=== PATIENT | female | born 1970 | race Caucasian/White ===

== ENCOUNTER 2017-04-02 13:10 | Outpatient (CLI) | payer BC ==
--- NOTE | 2017-04-03 07:44 | RAD ---
LEFT WRIST THREE VIEWS: 04/02/17 No fracture was seen. The carpals appear normal and the carpal relation seem normal. There were no a rthritic changes. The joints were unremarkable. The metacarpals showed no acute change. IMPRESSION: No acute findings. POS: HOME
== END 2017-04-02 13:11 | disposition home or self-care (01) ==
LOC: BURRAD 13:10
PROVIDERS: ATTEND Family Medicine
DX: M25.532 Pain in left wrist (principal)

== ENCOUNTER 2018-03-19 13:23 | Emergency (ER) | payer BC ==
--- NOTE | 2018-03-19 13:38 | CT ---
CT HEAD NONCONTRAST DATE: 03/19/18 HISTORY: Altered mental status. TIA. FINDINGS: No comparison. There is no evidence of acute intracranial hemorrhage or infarct. The ventricles appear normal in siz e, shape, and position. There is no mass effect or shift of midline structures. Visualized paranasal sinuses remain well aerated. IMPRESSION: No acute intracranial abnormalities are demonstrated on noncontrast CT head. Findings called to Dr. Saab in the [place] ER at [id number] hours. CODE CR. POS: [facility]
[2018-03-19 13:41] LABS: #Basophils 0.1 thou/uL (0.0-0.2); #Eosinphils 0.2 thou/uL (0.0-0.7); #Lymphocytes 2.9 thou/uL (1.20-3.40); #Monocytes 0.6 thou/uL (0.11-0.59); %Basophils 1.1 % (0.0-1.0); %Eosinophils 2.4 % (0.0-10.0); %Lymphocytes 43.4 % (21.0-51.0); %Monocytes 9.4 % (0.0-10.0); %Neutrophils 43.8 % (42.0-75.0); Hemoglobin 14.8 g/dL (12.0-16.0); Mean Corpuscular HGB CONC 34.8 g/dL (32.0-36.0); Mean Corpuscular Hemoglobin 29.8 pg (27.0-31.0); Mean Corpuscular Volume 85.4 fL (78.0-98.0); Mean Platelet Volume 6.5 fL (7.4-10.4); Platelet Count 339 thou/uL (130-400); RBC Distribution Width 10.7 % (11.5-14.5); Red Blood Cell (RBC) Count 4.96 mill/uL (4.20-5.40); White Blood Cell (WBC) Count 6.8 thou/uL (4.8-10.8)
[2018-03-19 13:50] LABS: PTT 30.9 SEC (22.9-36.1); Prothrombin Time 12.8 SEC (12.0-14.7)
[2018-03-19 13:57] LABS: ALT (SGPT) 27 U/L (8-55); AST (SGOT) 21 U/L (5-34); Albumin 4.4 g/dL (3.5-5.0); Alkaline Phosphatase 48 U/L (40-150); Anion Gap 16 mmol/L (10-20); BUN (Urea Nitrogen) 9 mg/dL (7.0-18.7); Bilirubin, Total 0.5 mg/dL (0.2-1.2); Calc. Creatinine Clearance 0 mL/min (70-130); Calcium 9.7 mg/dL (7.8-10.44); Carbon Dioxide 20 mmol/L (22-29); Chloride 107 mmol/L (98-107); Estimated GFR-MDRD 74; Globulin 3.3 g/dL (2.4-3.5); Glucose 121 mg/dL (70-105); Potassium 3.2 mmol/L (3.5-5.1); Protein, Total 7.7 g/dL (6.0-8.3); Sodium 140 mmol/L (136-145)
[2018-03-19 13:59] LABS: CKMB 0.9 ng/mL (0-6.6); Troponin I Less than 0.010 ng/mL (< 0.028)
[2018-03-19 14:02] LABS: Bilirubin Negative (Negative); Blood, Urine Trace (Negative); Clarity Clear (Clear); Glucose, Urine (Dipstick) Negative (Negative); Leukocyte Trace (Negative); Nitrite Negative (Negative); Protein, Urine (Dipstick) Negative (Neg-Trace); Urobilinogen 0.2 mg/dL (0.2-1.0)
[2018-03-19 14:05] LABS: Bacteria/HPF Rare-Few HPF (None Seen); RBC/HPF 0-3 HPF (0-3); Squamous Epithelial 0-3 HPF (0-3); WBC/HPF 0-3 HPF (0-3)
[2018-03-19 14:10] LABS: Amphetamine Not Detected (NotDetected); Barbiturates Screen Not Detected (NotDetected); Benzodiazepine Screen Not Detected (NotDetected); Cocaine Metabolite Screen Not Detected (NotDetected); Medtox Control Line Valid? VALID (VALID); Methadone Not Detected (NotDetected); Methamphetamine Not Detected (NotDetected); Opiate Screen Not Detected (NotDetected); Oxycodone Screen Not Detected (NotDetected); Phencyclidine (PCP) Not Detected (NotDetected); THC/Cannabinoid Screen Not Detected (NotDetected); Tricyclic Screen Not Detected (NotDetected)
[2018-03-19] MEDS ORDERED: Potassium Chloride 20 MEQ TAB ONE (14:14)
--- NOTE | 2018-03-19 14:50 | CT ---
CT ARTERIOGRAM NECK WITH IV CONTRAST AND 3D MIP IMAGING CT ARTERIOGRAM HEAD WITH IV CONTRAST AND 3D MIP IMAGING CT BRAIN WITH IV CONTRAST: History: FINDINGS: No abnormal areas of contrast enhancement of the brain are apparent. Normal branching of the great vessels at the aortic arch. Good contrast flow into each carotid and ve rtebral system. No significant plaque or arterial calcification. Carotid arteries are patent. [place] is intact. No intracranial filling defects or aneurysm involve the arterial structur es. IMPRESSION: No CT evidence of significant arterial stenosis or aneurysm. No acute abnormalities are demonstrated. POS: [facility]
== END 2018-03-19 15:33 | disposition home or self-care (01) ==
LOC: BURERS 13:23
DX: G45.9 Transient cerebral ischemic attack, unspecified (principal); I10 Essential (primary) hypertension
CPT/HCPCS: 36416; 70450; 70496; 70498; 80053; 80306; 81003; 81015; 82553; 84484; 85025; 85610; 85730; 93005; 94760